=== PATIENT | female | born 1930 | race Caucasian/White ===

== ENCOUNTER 2016-09-10 08:11 | Emergency (ER) | payer OTHER ==
[~2016-09-10] VITALS: Ht 154.9 cm; Wt 70.7 kg
[~2016-09-10 08:11] MED LIST: ATHENOL325 MG PO; KEFLEX250 MG PO
[2016-09-10 08:56] LABS: EOSINOPHIL (%) 0.7 % (0-5); EOSINOPHIL COUNT 0.1 K/uL (0-0.3); HEMATOCRIT 35.2 % (36.0-46.0); IMMATURE GRANULOCYTE (%) 0.4 % (0.0-0.7); INSTRUMENT ABS NEUTROPHIL CT 8.5 K/uL; LYMPHOCYTE COUNT 0.7 K/uL (1.0-2.8); MCH 31.4 PG (29.0-34.0); MCHC 33.5 G/DL (30.0-36.0); MCV 93.6 FL (83-99); MEAN PLAT.VOLUME 9.5 uM^3 (9.5-12.4); MONOCYTE (%) 6.4 % (3-12); MONOCYTE COUNT 0.6 K/uL (0-0.8); NEUTROPHIL (%) 84.7 % (45-76); NEUTROPHIL COUNT 8.5 K/uL (1.8-6.4); PLATELET COUNT 198 K/uL (156-360); RBC DIS.WIDTH-SD 44.4 % (39-53); RED BLOOD COUNT 3.76 M/uL (3.80-5.20)
[2016-09-10 10:38] VITALS: BP 127/86
== END 2016-09-10 10:39 ==
LOC: EME → EDBD 08:11 → EME 08:11
PROVIDERS: Emergency Medicine
DX: I83.891 Varicose veins of right lower extremity with other complications (principal); D64.9 Anemia, unspecified; I45.10 Unspecified right bundle-branch block
CPT/HCPCS: 85025; 93005; 99281; 99285

== ENCOUNTER 2016-09-10 19:47 | Emergency (ER) | payer OTHER ==
[~2016-09-10] VITALS: Ht 157.5 cm; Wt 68.1 kg
[2016-09-10 20:19] VITALS: BP 106/71
== END 2016-09-10 20:37 | disposition home or self-care (01) ==
LOC: EME 19:47
PROC: 0HQKXZZ Repair Right Lower Leg Skin, External Approach (ICD-10-PCS; principal; 2016-09-10)
DX: I83.891 Varicose veins of right lower extremity with other complications (principal); R58 Hemorrhage, not elsewhere classified
CPT/HCPCS: 99281; 99283